=== PATIENT | male | born 1995 | race Caucasian/White ===

== ENCOUNTER 2021-07-04 03:48 | Emergency (ER) | payer OTHER ==
[~2021-07-04] VITALS: Ht 177.8 cm; Wt 88.3 kg
[2021-07-04 04:04] VITALS: BP 125/70
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
== END 2021-07-04 04:28 ==
LOC: ER 03:48
DX: Z04.1 Encounter for examination and observation following transport accident (principal)
CPT/HCPCS: 99283-25

== ENCOUNTER → 2021-07-04 | Outpatient (CLI) | payer OTHER | LOC: LAB 03:33 | DX: Z02.83 Encounter for blood-alcohol and blood-drug test (principal) | CPT/HCPCS: 36415 ==